=== PATIENT | male | born 2000 | race Caucasian/White ===

== ENCOUNTER 2021-04-01 20:42 | Observation (INO) ==
[2021-04-01 22:45] LABS: Amorphous Sediment,Urine Few per hpf (None-Few); Bacteria,Urine Few per hpf (None-Few); Bilirubin,Urine Negative (Negative); Blood,Urine Negative (Negative); Clarity,Urine Turbid (Clear); Color,Urine Light-Yellow (Yellow); Glucose,Urine (UA) Normal (Normal); Ketones,Urine Negative (Negative); Leukocyte Esterase,Urine Trace (Negative); Mucus,Urine Few per lpf (None-Few); Nitrite,Urine Negative (Negative); PH,Urine 6.5 pH Units (5.0-8.0); Protein,Urine Negative (Neg-Trace); RBC,Urine 0-3 per hpf (0-3); Specific Gravity,Urine 1.014 (1.010-1.025); Squamous Epithelial Cell,Urine Few per hpf (None-Few); Urobilinogen,Urine Normal (Normal)
[2021-04-01 22:53] LABS: Amphetamine Screen,Urine Negative ng/mL (Cutoff=1000); Barbiturate Screen,Urine Negative ng/mL (Cutoff=200); Benzodiazepines Screen,Urine Negative ng/mL (Cutoff=200); Cannabinoid Screen,Urine Positive ng/mL (Cutoff = 50); Cocaine Screen,Urine Negative ng/mL (Cutoff= 300); Opiate Screen,Urine Negative ng/mL (Cutoff=300); Phencyclidine Screen,Urine Negative ng/mL (Cutoff=25)
[2021-04-02 01:10] LABS: Influenza A PCR Negative (Negative); Influenza B PCR Negative (Negative); Resp. Syncytial Virus PCR Negative (Negative)
[2021-04-02 01:11] LABS: SARS-CoV-2 by PCR (In House) Negative (Negative)
[2021-04-02] MEDS ORDERED: Acetaminophen 325 MG TABLET PO PRN (01:44)
[2021-04-02] MEDS ORDERED: hydrOXYzine pamoate 25 MG CAPSULE PO PRN (01:44)
[2021-04-02] MEDS ORDERED: *HR* LORazepam 1 MG TABLET PO PRN (01:44)
[2021-04-02] MEDS ORDERED: traZODone 50 MG TABLET PO PRN (01:44)
[2021-04-02] MEDS ORDERED: *HR* LORazepam 2 MG/ML VIAL IM PRN (01:44)
[2021-04-02] MEDS ORDERED: haloperidoL 5 MG TABLET PO PRN (01:44)
[2021-04-02] MEDS ORDERED: Haloperidol Lactate 5 MG/ML VIAL IM PRN (01:44)
[2021-04-02] MEDS ORDERED: Mag Hydrox/Al Hydrox/Simeth 30 ML UDC PO PRN (11:00)
[2021-04-02] MEDS ORDERED: MOM Conc 10 ML UD.LIQ PO PRN (11:00)
[2021-04-02] MEDS ORDERED: Nicotine 21 MG PATCH.TD24 TD PRN (11:00)
[2021-04-03 10:03] VITALS: BP 119/78; PULSE 63; TEMP 98.6; O2SAT 99
== END 2021-04-03 11:30 | disposition home or self-care (01) ==
LOC: EMEROOARM 20:42 → INTOOBSV 04-02 01:39 → 1ANU 04-02 01:39
PROVIDERS: ADMIT Psychiatry & Neurology Psychiatry; ATTEND Psychiatry & Neurology Psychiatry

== ENCOUNTER 2021-11-05 19:55 | Inpatient (IN) ==
[2021-11-05] MEDS ORDERED: Acetaminophen 325 MG TABLET PO PRN (20:00)
[2021-11-05] MEDS ORDERED: hydrOXYzine pamoate 25 MG CAPSULE PO PRN (20:00)
[2021-11-05] MEDS ORDERED: traZODone 50 MG TABLET PO PRN (20:00)
[2021-11-05] MEDS ORDERED: *HR* LORazepam 1 MG TABLET PO PRN (20:00)
[2021-11-05] MEDS ORDERED: *HR* LORazepam 2 MG/ML VIAL IM PRN (20:00)
[2021-11-05] MEDS ORDERED: Haloperidol Lactate 5 MG/ML VIAL IM PRN (20:00)
[2021-11-05] MEDS ORDERED: haloperidoL 5 MG TABLET PO PRN (20:00)
[2021-11-06] MEDS ORDERED: MOM Conc 10 ML UD.LIQ PO PRN (08:23)
[2021-11-06] MEDS ORDERED: Mag Hydrox/Al Hydrox/Simeth 30 ML UDC PO PRN (08:23)
[2021-11-06] MEDS: Nicotine 2 MG GUM BC PRN ×2 (12:36→17:14)
[2021-11-07] MEDS: Nicotine 2 MG GUM BC PRN (08:37)
[2021-11-07 08:55] VITALS: BP 111/75; PULSE 72; TEMP 97.4; O2SAT 100
== END 2021-11-07 13:40 | disposition home or self-care (01) | DRG 751 ==
LOC: 1ANU 19:55
PROVIDERS: ADMIT Psychiatry & Neurology Psychiatry; ATTEND Psychiatry & Neurology Psychiatry